=== PATIENT | male | born 1975 | race Caucasian/White ===

== ENCOUNTER 2021-12-25 09:39 | Outpatient (CLI) | payer BC, SELFPAY ==
--- NOTE | ~2021-12-25 | MR_ITS ---
EXAMINATION: MR shoulder LT wo con DATE: 12/25/2021 11:00 INDICATION: Chronic left shoulder pain. Decreased range of motion TECHNIQUE: Magnetic resonance imaging (MRI) of the left shoulder was performed without intravenous co ntrast. Sequences included axial PD-weighted FS FSE, coronal oblique PD-weighted FS FSE and T2-weight ed FS FSE, and sagittal oblique T2-weighted FS FSE and T1-weighted FSE. COMPARISON: None. FINDINGS: Exam limited by body habitus which required the use of a flex coil and motion artifact which required repeat sequences. Coracoacromial arch: Mild degenerative change at the acromioclavicular joint. Minimal anterior downsloping of the type I a cromion. No significant subacromial or subcoracoid narrowing. Rotator cuff: Minimal degenerative signal change in the superior cuff. Supraspinatous, interspaces, subscapularis, and teres minor are intact. Biceps tendon and glenoid labrum: Intact Fluid: No abnormal fluid collection detected Bones/cartilage: No suspicious focal or diffuse marrow signal. IMPRESSION: 1. Limited examination, as detailed above. 2. Minimal superior cuff tendinosis. 3. Mild AC joint hypertrophy. Reviewed, dictated and finalized at location K.
== END 2021-12-25 09:40 | disposition home or self-care (01) ==
LOC: ANHIMG 09:52
PROVIDERS: Visit Provider Orthopaedic Surgery
DX: M25.512 Pain in left shoulder (principal)
CPT/HCPCS: 73221

== ENCOUNTER 2024-02-23 12:48 | Outpatient (CLI) | payer BC, SELFPAY ==
--- NOTE | ~2024-02-23 | XR_ITS ---
EXAMINATION: XR fl inj shoulder LT - MR/CT DATE: 02/23/2024 13:51 INDICATION: Chronic left shoulder pain TECHNIQUE: A time-out was performed to verify the patient's name, date of , and procedure to b e performed. The procedure including the risks, benefits, and alternatives was discussed with the pat ient. Risks discussed included bleeding and infection. The patient understood the risks and agreed to proceed. The skin overlying the rotator cuff interval of the left glenohumeral joint was prepped an d draped in usual sterile fashion. Anesthetic was administered with 1% lidocaine subcutaneously. A 22 G needle was advanced under fluoroscopic guidance into the joint. Injection of 1 mL of Omnipaque 240 confirmed intra-articular position of the needle. Subsequently, injectate consisting of 12 mL of 2:1:1 mixture of sterile saline:Omnipaque 240:1% lidocaine mixed 200:1 with 529 mg/mL Multihance jhonathan olinium contrast was instilled with intra-articular administration confirmed with intermittent fluor oscopy. The needle was removed and the entry site was cleaned and dressed. There were no immediate co mplications. Fluoroscopy exposure time was 0.7 minutes. The total number of images was 80. Total DAP was 2.59 Gycm^2 FINDINGS: Real-time fluoroscopy demonstrates the needle and contrast in the left glenohumeral joint. IMPRESSION: 1. Successful left glenohumeral joint injection of dilute gadolinium contrast mixture for subsequent MRI arthrogram which will be dictated separately. Reviewed, dictated and finalized at location B. O CLERK IMPRESSION: 1. Successful left glenohumeral joint injection of dilute gadolinium contrast m ixture for subsequent MRI arthrogram which will be dictated separately.
--- NOTE | ~2024-02-23 | MR_ITS ---
EXAMINATION: MR shoulder LT w con DATE: 02/23/2024 14:22 INDICATION: Chronic left shoulder pain TECHNIQUE: Magnetic resonance imaging (MRI) of the left shoulder was performed following intra-artic ular gadolinium contrast injection and without intravenous contrast. Details of the glenohumeral join t injection have been dictated separately. Sequences included axial T2-weighted FS FSE, axial T1-robby ghted FS FSE, coronal oblique T1-weighted FS FSE, coronal oblique T2-weighted FSE, sagittal T2-weight ed FS FSE, sagittal T1-weighted FSE, and ABER (abduction external rotation) T1-weighted FS FSE. COMPARISON: None. FINDINGS: Coracoacromial arch: The acromion undersurface is curved in morphology (type II). The coracoacromial ligament is normal. M oderate acromioclavicular osteoarthritis. Rotator cuff: Mild supraspinatus and infraspinatus tendinopathy without discrete tear. The teres minor tendon is no rmal. Mild subscapularis tendinopathy with small intrasubstance tear measuring 5 x 3 mm at the centra l aspect of the lesser tuberosity footplate of the tendon. Normal rotator cuff muscle bulk and signal . Biceps tendon, glenoid labrum and glenohumeral cartilage: Long head of the biceps tendon is normal. There is a superior, anterior to posterior tear of the [place] oid labrum (SLAP tear) which extends from the 12:30 position anteriorly to the 11:00 position posteri erick. There is mild right humeral osteoarthritis with partial thickness chondral ulceration along the anterosuperior glenoid. There are small marginal osteophytes along the anterior rim of the glenoid e xtending to the base of the anterior labrum. Bones and other: Low signal intensity bone island at the apex of the humeral head. Normal marrow signal with no fractu re or pathologic marrow replacing process. No abnormal fluid signal in the subacromial/subdeltoid bur sa to suggest bursitis. A small amount of dilute contrast was injected into the subcoracoid bursa whi ch was identified fluoroscopically at the time of injection in the needle was subsequently reposition ed into the glenoid humeral joint space. IMPRESSION: 1. 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 2. Mild rotator cuff tendinopathy with small intrasubstance tear at the central lesser tuberosity bradley tplate of the subscapular tendon. 3. Moderate acromioclavicular osteoarthritis. Reviewed, dictated and finalized at location B. RT ENGINEER IMPRESSION: 1. Mild linear humeral osteoarthritis with SLAP tear at the superior glenoid la darian. 2. Mild rotator cuff tendinopathy with small intrasubstance tear at the central lesser tuberosity footplate of the subscapular tendon. 3. Moderate acromioclavicular osteoarthritis.
== END 2024-02-23 12:49 | disposition home or self-care (01) ==
LOC: MICIMG 12:49
PROVIDERS: PCP Family Medicine Sports Medicine
DX: M19.012 Primary osteoarthritis, left shoulder (principal); S43.432A Superior glenoid labrum lesion of left shoulder, initial encounter; X58.XXXA Exposure to other specified factors, initial encounter
CPT/HCPCS: 23350; 73222; A9577; Q9967